=== PATIENT | female | born 1995 | race Caucasian/White ===

== ENCOUNTER → 2022-11-23 | Emergency (ER) | payer OTHER ==
[~2022-11-23] VITALS: Ht 167.6 cm; Wt 78.9 kg
[~2022-11-23] MED LIST: EPIN0.3P3 IM; FAMOTIDINE (20 MG) 20 MG TABLET ONE; FAMOTIDINE (20 MG) 20 MG TABLET PO ONE; PRED50TA PO; predniSONE 10 MG TABLET PO ONE; predniSONE 20 MG TABLET ONE
[2022-11-23 13:56] VITALS: BP 122/82; TEMP 98.4; O2SAT 99
== END | disposition home or self-care (01) ==
LOC: ER 12:26
DX: R11.0 Nausea (principal); T78.1XXA Other adverse food reactions, not elsewhere classified, initial encounter; Z91.018 Allergy to other foods; Z60.2 Problems related to living alone; X58.XXXA Exposure to other specified factors, initial encounter
CPT/HCPCS: 99283; J7512 ×2